=== PATIENT | male | born 1965 | race Caucasian/White ===

== ENCOUNTER 2020-11-07 17:56 | Emergency (ER) | payer OTHER ==
[~2020-11-07] VITALS: Ht 172.7 cm; Wt 99.8 kg
[~2020-11-07 17:56] MED LIST: LOTREL 10-20 M1 EACH PO; ULTRAM 50MG TAB50 MG PO
[2020-11-07] MEDS ORDERED: OMEPRAZOLE 20 M20 M1 PO (18:16)
[2020-11-07] MEDS ORDERED: BYSTOLIC10 MG PO (18:16)
[2020-11-07 18:29] LABS: ABSOLUTE EOSINOPHILS 0.2 thou/uL (0.0-0.7); ABSOLUTE LYMPHOCYTES 2.2 thou/uL (0.8-5.3); ABSOLUTE MONOCYTES 0.5 thou/uL (0.0-1.2); ABSOLUTE NEUTROPHILS 3.8 thou/uL (1.6-8.1); BASOPHILS 0.6 %; EOSINOPHILS 2.6 %; HEMATOCRIT 41.9 % (42.0-52.0); HEMOGLOBIN 14.7 gm/dL (14.0-18.0); LYMPHOCYTES 32.8 %; MCH 30.9 pg (26.0-34.0); MCV 88.4 fL (80.0-100.0); MONOCYTES 7.6 %; MPV 8.3 fl. (7.2-11.1); NUCLEATED RBCS 0 /100WBC; PLATELET COUNT* 238 thou/uL (150-400); POLYS 56.4 %; RBC 4.74 mil/uL (4.50-6.00); WBC 6.7 thou/uL (4.0-11.0)
[2020-11-07 18:34] LABS: CALCIUM 8.1 mg/dL (8.5-10.1); CREATININE 1.3 mg/dL (0.6-1.3); POTASSIUM 4.7 mmol/L (3.5-5.1)
[2020-11-07 18:38] LABS: TOTAL BILIRUBIN 0.4 mg/dL (<0.1-1.0); TOTAL PROTEIN 7.8 g/dL (6.4-8.2)
[2020-11-07] MEDS ORDERED: ZANAFLEX4 MG PO (20:32)
[2020-11-07] MEDS ORDERED: IBUPROFEN 800800 M1 PO ×2 (20:32)
[2020-11-07] MEDS ORDERED: HYDROCODON-ACE1 EAC8 PO (20:40)
[2020-11-07 20:45] LABS: URINE BILIRUBIN NEGATIVE (Negative); URINE BLOOD NEGATIVE (Negative); URINE CLARITY CLEAR; URINE COLOR YELLOW; URINE GLUCOSE-RANDOM NEGATIVE (Negative); URINE KETONES TRACE (Negative); URINE LEUKOCYTES-REFLEX NEGATIVE (Negative); URINE NITRITE-REFLEX NEGATIVE (Negative); URINE PROTEIN NEGATIVE (Negative); URINE SPECIFIC GRAVITY 1.025 (1.005-1.030); URINE UROBILINOGEN 0.2 E.U./dl (0.2-1.0)
[2020-11-07 21:05] VITALS: BP 121/54
--- NOTE | 2020-11-08 14:07 | EKG ---
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: [facility] : 1965 Requested By: Karly Gomez Order Number: [id number] MD: Joss Charlton Measurements Intervals [place] Rate: 64 P: 8 PA: 161 QRS: 1 QRSD: 94 T: 13 QT: 393 QTc: 406 Interpretive Statements Sinus rhythm Baseline wander in lead(s) I,III,aVL,V1 No previous ECG available for comparison Electronically Signed On 11-08-2020 14:07:47 CDT by Joss Charlton [email or web address] <ELECTRONICALLY SIGNED> By: Joss Charlton MD, [facility] 11/08/20 1407 [id number] 183 Joss Charlton MD, [facility] /EPI
== END 2020-11-07 21:06 | disposition home or self-care (01) ==
LOC: M.ERS 17:56
PROVIDERS: Nurse Practitioner Family
DX: M54.5 Low back pain (principal); R10.32 Left lower quadrant pain; R35.0 Frequency of micturition; I10 Essential (primary) hypertension; K21.9 Gastro-esophageal reflux disease without esophagitis; Z87.442 Personal history of urinary calculi